=== PATIENT | female | born 1935 | race Caucasian/White ===

== ENCOUNTER 2017-03-09 15:26 | Inpatient (IN) | payer MEDICARE, BC ==
[~2017-03-09] VITALS: Ht 154.9 cm; Wt 61.3 kg
--- NOTE | 2017-03-09 15:26 | NUR ---
[facility] ASSISTED LIVING FOR NEAR SYNCOPE, -FALL OR TRAUMA HYPOTENSIVE CLAY DRY PRESS OPERATOR, FLUID CHALLENGE ABOUT 250ML GIVEN IN THE FIELD
[2017-03-09] MEDS ORDERED: IV NS 0.9% 1,000 ML BAG IV ONE (16:00)
[2017-03-09 16:03] LABS: BASOPHILS # (AUTO) 0.1 /CMM (0.0-0.2); BASOPHILS % (AUTO) 0.5 % (0.0-2.0); EOSINOPHILS # (AUTO) 0.1 /CMM (0.0-0.7); EOSINOPHILS % (AUTO) 0.7 % (0.0-6.0); HEMATOCRIT 43 % (33-45); HEMOGLOBIN 14.7 g/dL (11.5-14.8); LYMPHOCYTES # (AUTO) 1.1 /CMM (0.8-4.8); LYMPHOCYTES % (AUTO) 8.8 % (20.0-44.0); MEAN CORPUSCULAR HEMOGLOBIN 33 PG (26.0-33.0); MEAN CORPUSCULAR HGB CONC 34 g/dl (31.0-36.0); MEAN CORPUSCULAR VOLUME 96 fL (82-100); MONOCYTES # (AUTO) 0.4 /CMM (0.1-1.30); NEUTROPHILS # (AUTO) 11.3 /CMM (1.8-8.9); PLATELET COUNT (AUTO) 201 /CMM (150-450); RDW COEFFICIENT OF VARIATION 12.2 (11.5-15.0); RED BLOOD CELL COUNT(AUTO) 4.47 MIL/uL (4.0-5.2)
[2017-03-09 16:13] LABS: CALCIUM, SERUM 8.9 mg/dL (8.5-10.1); CARBON DIOXIDE 22 mmol/L (21-32); CHLORIDE 88 mmol/L (98-107); CREATININE 1.3 mg/dL (0.6-1.3); GLUCOSE 134 mg/dL (74-106); POTASSIUM 3.8 mmol/L (3.5-5.1); SODIUM SERUM 123 mmol/L (136-145); UREA NITROGEN, BLOOD 19 mg/dL (7-18)
[2017-03-09 16:16] LABS: INR 1.17 (0.87-1.13); PROTHROMBIN TIME 12.2 SECS (9.5-12.7)
[2017-03-09 16:19] LABS: ALANINE AMINOTRANSFERASE 22 U/L (12-78); ALBUMIN 3.1 g/dL (3.4-5.0); ALKALINE PHOSPHATASE 181 U/L (46-116); ASPARTATE AMINOTRANSFERASE 35 U/L (15-37); BILIRUBIN,DIRECT 0.3 mg/dL (0.0-0.2); BILIRUBIN,TOTAL 0.8 mg/dL (0.2-1.0)
[2017-03-09 16:21] LABS: TROPONIN I < 0.017 ng/mL (0.00-0.056)
[2017-03-09] MEDS ORDERED: OSELTAMIVIR PHOSPHATE 75 MG CAPSULE PO ONE (16:30)
[2017-03-09] MEDS ORDERED: CEFTRIAXONE 1GM BAG (ER ONLY) 50 ML IV ONE (16:30)
[2017-03-09] MEDS ORDERED: AZITHROMYCIN 500 MG in IV D5W 250 ML IV ONE (16:30)
--- NOTE | 2017-03-09 16:54 | NUR ---
TELE [id number]
[2017-03-09] MEDS ORDERED: ONDANSETRON HCL/PF 4 MG/2 ML VIAL IVP ONE (17:00)
[2017-03-09] MEDS ORDERED: TRAM50TA2 PO (17:08)
[2017-03-09] MEDS ORDERED: OXYC-128 PO (17:08)
[2017-03-09] MEDS ORDERED: RIVA10TA PO (17:08)
[2017-03-09] MEDS ORDERED: BRIM5DRO5 EACHEYE (17:08)
[2017-03-09] MEDS ORDERED: BENA5TAB2 PO (17:08)
[2017-03-09] MEDS ORDERED: ACET-2605 PO (17:08)
[2017-03-09] MEDS ORDERED: FLUT1DIS5 IH (17:08)
[2017-03-09] MEDS ORDERED: ALBU8.5H8 INH (17:08)
[2017-03-09] MEDS ORDERED: FERR-58 PO (17:08)
[2017-03-09] MEDS ORDERED: B2/V1TAB PO (17:08)
[2017-03-09] MEDS ORDERED: CHOL10002 PO (17:08)
[2017-03-09] MEDS ORDERED: CLON0.1T PO (17:08)
[2017-03-09] MEDS ORDERED: TIOT18CA3 IH (17:08)
[2017-03-09] MEDS ORDERED: POLY119P2 PO (17:08)
[2017-03-09] MEDS ORDERED: PRED5TAB PO (17:08)
[2017-03-09] MEDS ORDERED: DOCU100C36 PO (17:08)
[2017-03-09] MEDS ORDERED: GUAI600T53 PO (17:08)
[2017-03-09] MEDS ORDERED: HYDR12.55 PO (17:08)
[2017-03-09] MEDS ORDERED: FAMO20TA8 PO (17:08)
[2017-03-09] MEDS ORDERED: AMLO2.5T PO (17:08)
[2017-03-09] MEDS ORDERED: PANT40TA4 PO (17:08)
[2017-03-09] MEDS ORDERED: ONDANSETRON HCL/PF 4 MG/2 ML VIAL ONE (17:16)
[2017-03-09] MEDS ORDERED: OSELTAMIVIR PHOSPHATE 75 MG CAPSULE ONE (17:16)
--- NOTE | 2017-03-09 18:31 | NUR ---
CALLED NURSING SUP. TO INFORM HER PT IS POSITIVE FOR INFLUENZA
--- NOTE | 2017-03-09 19:25 | NUR ---
GAVE REPORT TO NAMRATA FOR SCARLET
[2017-03-09] MEDS ORDERED: CEFTRIAXONE 1 G in IV D5W 50 ML IV SCH (20:00)
[2017-03-09] MEDS ORDERED: GUAIFENESIN LA 600 MG TABLET.SA PO PRN (20:00)
[2017-03-09] MEDS ORDERED: Z GUARD REMEDY 2 OZ OINT TP PRN (20:00)
[2017-03-09] MEDS ORDERED: MAGNESIUM HYDROXIDE 30 ML UDC PO PRN (20:00)
[2017-03-09] MEDS ORDERED: MAG HYDROX/AL HYDROX/SIMETH 30 ML UDC PO PRN (20:00)
[2017-03-09] MEDS ORDERED: oxyCODONE/APAP (5/325 MG) 1 UDTAB TABLET PO PRN (20:00)
[2017-03-09] MEDS ORDERED: ACETAMINOPHEN 325 MG TABLET PO PRN (20:00)
--- NOTE | 2017-03-09 20:38 | NUR ---
REPORT GIVEN TO [facility] NURSE
[2017-03-09 21:30] VITALS: BP 132/89
--- NOTE | 2017-03-09 22:00 | NUR ---
LEGAL EDITOR NOTE RECEIVED PATIENT AWAKE AND ALERT X3. NO DISTRESS NOTED. GENERALIZED WEAKNESS NOTED. UNABLE TO AMBULATE AT THIS TIME. PATIENT DENIES ANY PAIN. TWO SONS AT BEDSIDE. ORIENTED PATIENT AND FAMILY TO ROOM AND TO UNIT. SKIN CHECKED. PICTURES TAKEN OF WOUNDS AND PLACED IN CHART, WOUND CONSULT ORDERED. ALL BELONGINGS CHECKED AND ACCOUNTED FOR. IV SITE INTACT, WITH FLUIDS RUNNING ORDERED. BED LOCKED AND IN LOWEST POSITION. SIDE RAILS UP, CALL LIGHT WITHIN REACH. WILL CONTINUE TO MONITOR.
[2017-03-09] MEDS: IPRATROPIUM NEB FS 0.5 MG/2.5 ML AMPUL.NEB NEB SCH ×2 (22:10→23:30)
[2017-03-09 23:00] VITALS: BP 132/89
[2017-03-09] MEDS: ZITHROMAX 500 MG/250 ML D5W IV SCH ×2 (23:00)
[2017-03-10] VITALS: BP 131/72
[2017-03-10] MEDS: IV NS 0.9% 1,000 ML IV PRN ×2 (03:28→15:59)
[2017-03-10 04:00] VITALS: BP 128/67
[2017-03-10] MEDS: ONDANSETRON HCL/PF 4 MG/2 ML VIAL IVP PRN ×2 (04:50→11:17)
--- NOTE | 2017-03-10 06:40 | NUR ---
HYDROLOGIC ENGINEER NOTE PATIENT SLEEPING AT THIS TIME. KEPT CLEAN, DRY AND COMFORTABLE. WILL ENDORSE TO DAY SHIFT FOR SCARLET.
[2017-03-10 07:01] LABS: BASOPHILS # (AUTO) 0.1 /CMM (0.0-0.2); BASOPHILS % (AUTO) 0.3 % (0.0-2.0); HEMATOCRIT 44 % (33-45); HEMOGLOBIN 15.1 g/dL (11.5-14.8); LYMPHOCYTES # (AUTO) 1.7 /CMM (0.8-4.8); LYMPHOCYTES % (AUTO) 9.7 % (20.0-44.0); MEAN CORPUSCULAR HEMOGLOBIN 34 PG (26.0-33.0); MEAN CORPUSCULAR HGB CONC 34 g/dl (31.0-36.0); MEAN CORPUSCULAR VOLUME 98 fL (82-100); MONOCYTES # (AUTO) 1.1 /CMM (0.1-1.30); MONOCYTES % (AUTO) 6.3 % (2.0-12.0); NEUTROPHILS # (AUTO) 14.9 /CMM (1.8-8.9); NEUTROPHILS % (AUTO) 83.7 % (43.0-81.0); PLATELET COUNT (AUTO) 194 /CMM (150-450); RDW COEFFICIENT OF VARIATION 13.1 (11.5-15.0); RED BLOOD CELL COUNT(AUTO) 4.49 MIL/uL (4.0-5.2); WHITE BLOOD COUNT (AUTO) 17.8 K/uL (4.3-11.0)
[2017-03-10 07:02] LABS: CALCIUM, SERUM 8.1 mg/dL (8.5-10.1); CARBON DIOXIDE 22 mmol/L (21-32); CHLORIDE 92 mmol/L (98-107); CREATININE 1.1 mg/dL (0.6-1.3); GLUCOSE 102 mg/dL (74-106); MAGNESIUM 1.7 mg/dL (1.8-2.4); PHOSPHORUS 3.1 mg/dL (2.5-4.9); POTASSIUM 3.6 mmol/L (3.5-5.1); SODIUM SERUM 128 mmol/L (136-145); UREA NITROGEN, BLOOD 17 mg/dL (7-18)
[2017-03-10 08:00] VITALS: BP 117/78
--- NOTE | 2017-03-10 08:00 | NUR ---
RN NOTES PATIENT IN BED RESTING NO SOB OR ACUTE DISTRESS NOTED. ALERT, ORIENTED X3, PERIPHERAL IV INTACT PATENT. BED IN LOW LOCKED POSITION CALL LIGHT WITHIN REACH. WILL CONTINUE TO MONITOR.
[2017-03-10] MEDS: IPRATROPIUM NEB FS 0.5 MG/2.5 ML AMPUL.NEB NEB SCH ×3 (08:59→23:32)
[2017-03-10] MEDS ORDERED: HYDROCHLOROTHIAZIDE 25 MG TABLET PO SCH (09:00)
[2017-03-10] MEDS ORDERED: OSELTAMIVIR PHOSPHATE 75 MG CAPSULE PO SCH (09:00)
[2017-03-10] MEDS: CHOLECALCIFEROL 1,000 UNIT TABLET (VIT D3) PO SCH (09:44)
[2017-03-10] MEDS: PANTOPRAZOLE 40 MG TABLET.DR PO SCH (09:44)
[2017-03-10] MEDS: FERROUS SULFATE (325 MG) 325 MG/TAB TABLET PO SCH ×2 (09:45→18:09)
[2017-03-10] MEDS: CLONIDINE HCL 0.1 MG TABLET PO SCH (09:45)
[2017-03-10] MEDS: DOCUSATE SODIUM 100 MG CAPSULE PO SCH (09:45)
[2017-03-10] MEDS: AMLODIPINE BESYLATE 2.5 MG TABLET PO SCH (09:47)
[2017-03-10] MEDS: predniSONE 5 MG TABLET PO SCH (09:47)
[2017-03-10] MEDS: FAMOTIDINE (20 MG) 20 MG TABLET PO SCH ×2 (09:47→18:09)
[2017-03-10] MEDS: POLYETHYLENE GLYCOL 3350 17 GM POWD.PACK PO SCH (09:48)
[2017-03-10] MEDS: MULTIVITAMIN/LUTEIN/MINERALS 1 TAB PO SCH ×2 (09:51→18:09)
[2017-03-10] MEDS: FLUTICASONE/VILANTEROL 1 EACH BLST.W.DEV IH SCH (09:59)
[2017-03-10] MEDS: BRIMONIDINE TARTRATE OPHT SOLN 5 ML BOTTLE EACHEYE SCH ×3 (10:00→18:11)
--- NOTE | 2017-03-10 11:00 | NUR ---
MICA LAYER NOTES PATIENT SEEN AND EVALUATED BY DR. WARD ORDERS NOTED AND CARRIED OUT.
[2017-03-10] MEDS: Magnesium 1GM/D5W 100ML PREMIX 100 ML IV SCH ×2 (12:23→14:04)
--- NOTE | 2017-03-10 13:52 | NUR ---
WOUND CARE CONSULT: PT PRESENTS WITH HUGE RAISED BRUISE AREA TO LEFT CHEST WALL. DEFER TO MD. RECOMMENDATIONS MADE FOR SKIN PROTECTION AND DISCUSSED WITH NURSING STAFF. PT IS INCONTINENT. ALL SKIN PROTECTION MEASURES IN PLACE. WILL SEE PRN. VIVAR IN AGREEMENT WITH PLAN OF CARE. Addendum: 03/10/17 at 1354 by EVARISTO CAEVEDO WNDNU Amended: Links added.
[2017-03-10] MEDS: CEFTRIAXONE 1 G in IV D5W 50 ML IV SCH (15:59)
[2017-03-10 16:00] VITALS: BP 124/66
[2017-03-10] MEDS: RIVAROXABAN 10 MG TABLET PO SCH (18:10)
--- NOTE | 2017-03-10 18:37 | NUR ---
RN NOTES PATIENT DAUGHTER STATES SHE HAS ONLY ALLERGIES TO IBUPROFEN . PHARMACY NOTIFIED.
--- NOTE | 2017-03-10 19:30 | NUR ---
MS RN NOTES PATIENT IN BED RESTING NO SOB OR ACUTE DISTRESS NOTED. ALL DUE MEDICATIONS ADMINISTERED. ALL NEEDS MET . PERIPHERAL IV INTACT PATENT. ENDORSED CARE TO PM SHIFT.
[2017-03-10 20:00] VITALS: BP 114/68
[2017-03-10 22:00] VITALS: BP 114/68
[2017-03-10] MEDS: ZITHROMAX 500 MG/250 ML D5W IV SCH ×2 (23:53)
[2017-03-11] MEDS: ONDANSETRON HCL/PF 4 MG/2 ML VIAL IVP PRN ×3 (01:57→16:36)
--- NOTE | 2017-03-11 06:34 | NUR ---
MS RN NOTE PATIENT SLEEPING AT THIS TIME. KEPT CLEAN, DRY AND COMFORTABLE. WILL ENDORSE TO DAY SHIFT FOR SCARLET.
[2017-03-11 07:48] LABS: BASOPHILS % (AUTO) 0.1 % (0.0-2.0); EOSINOPHILS % (AUTO) 0.2 % (0.0-6.0); HEMATOCRIT 37 % (33-45); HEMOGLOBIN 13.1 g/dL (11.5-14.8); LYMPHOCYTES # (AUTO) 1.6 /CMM (0.8-4.8); LYMPHOCYTES % (AUTO) 8.5 % (20.0-44.0); MEAN CORPUSCULAR HEMOGLOBIN 33 PG (26.0-33.0); MEAN CORPUSCULAR HGB CONC 35 g/dl (31.0-36.0); MEAN CORPUSCULAR VOLUME 95 fL (82-100); MONOCYTES # (AUTO) 1.3 /CMM (0.1-1.30); MONOCYTES % (AUTO) 7.2 % (2.0-12.0); NEUTROPHILS # (AUTO) 15.3 /CMM (1.8-8.9); PLATELET COUNT (AUTO) 219 /CMM (150-450); RDW COEFFICIENT OF VARIATION 12.2 (11.5-15.0); RED BLOOD CELL COUNT(AUTO) 3.93 MIL/uL (4.0-5.2); WHITE BLOOD COUNT (AUTO) 18.2 K/uL (4.3-11.0)
--- NOTE | 2017-03-11 07:56 | NUR ---
MS RN OPENING NOTES. PT WITH DROPLET PRECS R/T: INFLUENZA. RECEIVED PT A&0X3 RESTING IN BED. PT TOLERATING ROOM AIR WITHOUT SOB OR RESP DISTRESS. PT DENIES PAIN A THIS TIME. PT WITH IVC AT R HAND INTACT AND OPERATIONAL. BED IN LOWEST LOCKED POSITION WITH WITH HANDRAILSX2 AND CALL LEE WITHIN REACH. PT BRIEFED ON TODAY'S POC AND IS WITHOUT CONCERN OR COMPLAINT THIS TIME.
[2017-03-11 08:00] VITALS: BP 111/68
[2017-03-11] MEDS: CHOLECALCIFEROL 1,000 UNIT TABLET (VIT D3) PO SCH (08:27)
[2017-03-11] MEDS: AMLODIPINE BESYLATE 2.5 MG TABLET PO SCH (08:28)
[2017-03-11] MEDS: DOCUSATE SODIUM 100 MG CAPSULE PO SCH (08:28)
[2017-03-11] MEDS: FERROUS SULFATE (325 MG) 325 MG/TAB TABLET PO SCH ×2 (08:29→18:27)
[2017-03-11] MEDS: CLONIDINE HCL 0.1 MG TABLET PO SCH (08:29)
[2017-03-11] MEDS: FAMOTIDINE (20 MG) 20 MG TABLET PO SCH ×2 (08:30→18:27)
[2017-03-11] MEDS: PANTOPRAZOLE 40 MG TABLET.DR PO SCH (08:30)
[2017-03-11] MEDS: predniSONE 5 MG TABLET PO SCH (08:30)
[2017-03-11] MEDS: POLYETHYLENE GLYCOL 3350 17 GM POWD.PACK PO SCH (08:31)
[2017-03-11 09:00] LABS: CARBON DIOXIDE 24 mmol/L (21-32); CHLORIDE 91 mmol/L (98-107); CREATININE 0.8 mg/dL (0.6-1.3); GLUCOSE 94 mg/dL (74-106); MAGNESIUM 1.9 mg/dL (1.8-2.4); PHOSPHORUS 1.9 mg/dL (2.5-4.9); POTASSIUM 3.2 mmol/L (3.5-5.1); SODIUM SERUM 126 mmol/L (136-145); UREA NITROGEN, BLOOD 15 mg/dL (7-18)
[2017-03-11] MEDS: BRIMONIDINE TARTRATE OPHT SOLN 5 ML BOTTLE EACHEYE SCH ×3 (09:00→18:28)
[2017-03-11] MEDS: FLUTICASONE/VILANTEROL 1 EACH BLST.W.DEV IH SCH (09:00)
[2017-03-11] MEDS: MULTIVITAMIN/LUTEIN/MINERALS 1 TAB PO SCH ×2 (09:00→18:27)
--- NOTE | 2017-03-11 09:00 | NUR ---
RN NOTES. PHARMACY CONTACTED REGARDING MISSING CASETTE MEDICATIONS. PHARMACY TO PROVIDE.
[2017-03-11] MEDS: IPRATROPIUM NEB FS 0.5 MG/2.5 ML AMPUL.NEB NEB SCH ×2 (09:20→14:30)
[2017-03-11] MEDS ORDERED: MENTHOL/CETYLPYRD (CEPACOL) 1 LOZ LOZENGE PO PRN (11:30)
[2017-03-11 12:08] LABS: THYROID STIMULATING HORMONE 1.364 uIU/mL (0.358-3.74); URIC ACID 7.1 mg/dL (2.6-7.2)
[2017-03-11 16:00] VITALS: BP 119/63
[2017-03-11] MEDS: CEFTRIAXONE 1 G in IV D5W 50 ML IV SCH (16:28)
[2017-03-11] MEDS: RIVAROXABAN 10 MG TABLET PO SCH (18:32)
[2017-03-11] MEDS ORDERED: NEUTRA PHOS 1 POWD.PACKET PO ONE (19:00)
[2017-03-11] MEDS ORDERED: FEE PK DOSING 1 MIN EA MC ONE (19:26)
--- NOTE | 2017-03-11 19:30 | NUR ---
RN OPENING NOTES PATIENT IS RESTING IN BED, ALERT AND ORIENTEDX3. VS STABLE. NO C/O PAIN AT THIS TIME. RHONCHI HEARD ON AUSCULTATION. ON NC 3L. PT WITH INTERMITTENT NAUSEA TREATED WITH PRN ANTIEMETICS. IV ACCESS AT R HAND G#20 SL PATENT AND INTACT. BED IN LOW AND LOCKED POSITION, SIDE RAILSX3. CALL LIGHT WITHIN EASY REACH. WILL CONTINUE TO MONITOR AND ASSESS DURING THE SHIFT.
--- NOTE | 2017-03-11 19:38 | NUR ---
RN CLOSING NOTES. PT A&0X3, PREDOMINANTLY RESTING WITH FAMILY AT BEDSIDE. PT WITH O2 VIA NC 3LPM, SOB WITH MINOR EXERTION. LUNGS REMAIN CONGESTED WITH RHONCHI. PT REPORTING NO PAIN. PT WITH INTERMITTENT NAUSEA TREATED WITH PRN ANTIEMETICS. PT WITH IVC AT R HAND G#20 INTACT AND SL. BED IN LOWEST LOCKED POSITION WITH HANDRAILSX3 AND CALL LEE WITHIN REACH. ALL DAY SHIFT DUTIES ATTENDED TO. PT WITHOUT CONCERN OR COMPLAINT. WILL ENDORSE TO NIGHT NURSE.
[2017-03-11 20:00] VITALS: BP 104/63
[2017-03-11 20:25] VITALS: BP 104/63
[2017-03-11] MEDS: VANCOMYCIN 1 GM in IV D5W 250 ML IV SCH (21:06)
[2017-03-11] MEDS: ZOLPIDEM TARTRATE 5 MG TABLET PO PRN (21:35)
[2017-03-12] VITALS (18 sets, daily range): BP systolic 90–139; BP diastolic 43–81
[2017-03-12] MEDS: IPRATROPIUM NEB FS 0.5 MG/2.5 ML AMPUL.NEB NEB SCH ×4 (00:12→23:38)
[2017-03-12] MEDS: ONDANSETRON HCL/PF 4 MG/2 ML VIAL IVP PRN ×2 (06:44→14:47)
--- NOTE | 2017-03-12 06:53 | NUR ---
RN CLOSING NOTES PATIENT IS SLEEPING IN BED, EASY TO AROUSE, ALERT AND ORIENTED X3. VS STABLE. RHONCHI PRESENT UPON ON AUSCULTATION. ON NC 3L. PT WITH INTERMITTENT NAUSEA TREATED WITH PRN ANTIEMETICS PRN. IV ACCESS AT R HAND G#20 SL PATENT AND INTACT. ALL NEEDS ARE MET AND MEDICATIONS GIVEN PER MD ORDER. BED IN LOW AND LOCKED POSITION, SIDE RAILSX3. CALL LIGHT WITHIN EASY REACH. WILL ENDORSE TO RN DAY SHIFT FOR SCARLET.
[2017-03-12 07:27] LABS: BASOPHILS % (AUTO) 0.3 % (0.0-2.0); EOSINOPHILS % (AUTO) 0.2 % (0.0-6.0); HEMATOCRIT 34 % (33-45); HEMOGLOBIN 11.6 g/dL (11.5-14.8); LYMPHOCYTES # (AUTO) 0.9 /CMM (0.8-4.8); LYMPHOCYTES % (AUTO) 9.7 % (20.0-44.0); MEAN CORPUSCULAR HEMOGLOBIN 34 PG (26.0-33.0); MEAN CORPUSCULAR HGB CONC 35 g/dl (31.0-36.0); MEAN CORPUSCULAR VOLUME 97 fL (82-100); MONOCYTES # (AUTO) 0.5 /CMM (0.1-1.30); MONOCYTES % (AUTO) 5.6 % (2.0-12.0); NEUTROPHILS # (AUTO) 8.1 /CMM (1.8-8.9); NEUTROPHILS % (AUTO) 84.2 % (43.0-81.0); PLATELET COUNT (AUTO) 207 /CMM (150-450); RDW COEFFICIENT OF VARIATION 13.3 (11.5-15.0); RED BLOOD CELL COUNT(AUTO) 3.44 MIL/uL (4.0-5.2); WHITE BLOOD COUNT (AUTO) 9.6 K/uL (4.3-11.0)
--- NOTE | 2017-03-12 07:30 | NUR ---
m/s channel marketing manager: notes received pt in bed awake, appears weak. noted with hr on the 140's. c/o sob. pt on o2 at 2l/min via n/c and satting at 96%. hob elevated. noted iv to right hand swelling with redness. iv removed with tip intact. inserted new iv to right hand/wrist#22. will continue to monitor.
--- NOTE | 2017-03-12 08:00 | NUR ---
m/s accounting manager controller: notes pt remains [id number]. placed pt on tele. dr. kiran here and made aware with stat order of ekg. also showed [address] kiran. cn made aware.
[2017-03-12 08:17] LABS: CALCIUM, SERUM 8.3 mg/dL (8.5-10.1); CARBON DIOXIDE 25 mmol/L (21-32); CHLORIDE 92 mmol/L (98-107); CREATININE 0.7 mg/dL (0.6-1.3); GLUCOSE 92 mg/dL (74-106); MAGNESIUM 1.6 mg/dL (1.8-2.4); PHOSPHORUS 1.9 mg/dL (2.5-4.9); POTASSIUM 3.3 mmol/L (3.5-5.1); SODIUM SERUM 127 mmol/L (136-145); UREA NITROGEN, BLOOD 11 mg/dL (7-18)
--- NOTE | 2017-03-12 08:20 | NUR ---
m/s materials assistant: notes ekg resulted=svt= [address] kiran with verbal order to transfer pt to [facility]. cn made aware and called schedule supervisor for a bed. pt made aware.
--- NOTE | 2017-03-12 08:25 | NUR ---
m/s promotional marketing analyst: notes dr. watkins here and made aware re: transfer to [facility] status. still awaiting for bed.
--- NOTE | 2017-03-12 08:43 | NUR ---
m/s foundry helper: notes dr. kiran at bedside and assessed pt with verbal order to send pt to [facility] instead. cn aware. pt made aware.
--- NOTE | 2017-03-12 08:46 | NUR ---
m/s diabetes nurse: notes pt may need a midline. dr. watkins here and received order for midline insertion. order carried out and acknowledged. cn aware and will call nursing pond supervisor.
[2017-03-12] MEDS ORDERED: AMIODARONE 900 MG in IV D5W 500 ML IV PRN (09:00)
[2017-03-12] MEDS: FERROUS SULFATE (325 MG) 325 MG/TAB TABLET PO SCH ×2 (09:00→16:18)
[2017-03-12] MEDS: PANTOPRAZOLE 40 MG TABLET.DR PO SCH (09:00)
[2017-03-12] MEDS: BOOST PLUS FOOD-CHOCLATE 237 ML BOX PO SCH ×3 (09:00→16:18)
[2017-03-12] MEDS: DOCUSATE SODIUM 100 MG CAPSULE PO SCH (09:00)
[2017-03-12] MEDS ORDERED: AMIODARONE 150 MG in IV D5W 100 ML IV ONE (09:00)
[2017-03-12] MEDS: POLYETHYLENE GLYCOL 3350 17 GM POWD.PACK PO SCH (09:00)
[2017-03-12] MEDS: predniSONE 5 MG TABLET PO SCH (09:00)
[2017-03-12] MEDS: AMLODIPINE BESYLATE 2.5 MG TABLET PO SCH (09:00)
[2017-03-12] MEDS: CLONIDINE HCL 0.1 MG TABLET PO SCH (09:00)
[2017-03-12] MEDS: CHOLECALCIFEROL 1,000 UNIT TABLET (VIT D3) PO SCH (09:00)
[2017-03-12] MEDS: MULTIVITAMIN/LUTEIN/MINERALS 1 TAB PO SCH ×2 (09:00→16:19)
[2017-03-12] MEDS: FAMOTIDINE (20 MG) 20 MG TABLET PO SCH ×2 (09:00→16:18)
--- NOTE | 2017-03-12 09:10 | NUR ---
m/s recruiting administrator: notes weston (daughter) notified and made aware re: transfer to higher level care to [facility], spoke to her over the phone and she is on her way here as stated.
--- NOTE | 2017-03-12 09:20 | NUR ---
RN NOTES RECEIVED PT FROM [facility] VIA BED. PT LETHARGIC. ON O2 AT 2LPM VIA NC. PLACED COMFORTABLY IN THE ROOM. PT CONNECTED TO MONITOR, HR ON 140-150S. STARTED IV LINE ON RIGHT WRIST #20. AWAITING FOR MIDLINE INSERTION. BODY ASSESSMENT DONE. NO NEW SKIN ISSUE NOTED. INSERTED FC. NO HEMATURIA NOTED. BLE ELEVATED. FOR AMIO DRIP. DR. LOGAN IN THE UNIT AWARE OF TRANSFER. ORDERED ADENOSINE 6MG AND 12MG IVP NOW. PT HR REMAINS ON 140S. ABG RESULT RELAYED TO DR. LOGAN. WILL CLOSELY MONITOR.
--- NOTE | 2017-03-12 09:20 | NUR ---
m/s assistant to the vice president: notes transferred pt to [facility] room 261 with all valuables/belongings via bed with monitor and oxygen. report given to prince gonzalez) for continuity of care.
[2017-03-12] MEDS ORDERED: ADENOSINE 6 MG/2 ML VIAL IVP STA ×2 (09:28)
--- NOTE | 2017-03-12 09:45 | NUR ---
RN NOTES PT GIVEN ADENOSINE 6MG AND 12MG IVP. HR WENT DOWN TO 80S AFTER MED ADMINISTRATION BUT WENT UP AGAIN TO 130-140S. PT ON A.FIB. AWAITING FOR AMIO DRIP. DR. LOGAN IN THE UNIT AWARE. PT A/OX1, DROWSY. NO RESPIRATORY DISTRESS NOTED. NO SOB NOTED. NO SIGNS OF PAIN NOTED. DAUGHTER AT BEDSIDE. WILL CLOSELY MONITOR.
--- NOTE | 2017-03-12 10:00 | NUR ---
RN NOTES SEEN AND EXAMINED BY DR. KIM GARRISON. AWARE OF CURRENT LAB VALUES ON CXR RESULT. PT INSERTED FC. NO HEMATURIA NOTED. WILL MONITOR.
[2017-03-12] MEDS: FLUTICASONE/VILANTEROL 1 EACH BLST.W.DEV IH SCH (10:06)
[2017-03-12] MEDS: BRIMONIDINE TARTRATE OPHT SOLN 5 ML BOTTLE EACHEYE SCH ×3 (10:06→16:20)
[2017-03-12] MEDS ORDERED: AMIODARONE 900 MG in IV D5W 482 ML IV PRN (11:00)
[2017-03-12] MEDS: Magnesium 1GM/D5W 100ML PREMIX 1 G in PREMIX 1 EA IV SCH ×2 (11:23→12:31)
[2017-03-12] MEDS: Potassium Phosphate meq 11 MEQ in IV D5W 100 ML IV SCH ×2 (12:43→15:39)
[2017-03-12] MEDS: TRAMADOL HCL 50 MG TABLET PO PRN (12:43)
[2017-03-12] MEDS: VANCOMYCIN 1 GM in IV D5W 250 ML IV SCH (15:32)
--- NOTE | 2017-03-12 16:00 | NUR ---
RN NOTES SEEN AND EXAMINED BY DR. WARD. AWARE OF CURRENT LAB VALUES AND CXR RESULT. POTASSIUM MG AND PHOSPHORUS REPLACED. PT ON AMIO DRIP 1MG/HR. PT ETHAN ON 80S. NO SIGNS OF CARDIAC DISTRESS NOTED. ORDERED LABS IN AM. WILL MONITOR. Addendum: 03/12/17 at 1700 by BETO MORA RN CORRECTION... AMIO DRIP 1MG/MIN NOT 1MG/HR
[2017-03-12 16:10] LABS: THYROID STIMULATING HORMONE 0.912 uIU/mL (0.358-3.74)
[2017-03-12] MEDS: RIVAROXABAN 10 MG TABLET PO SCH (16:19)
[2017-03-12] MEDS: oxyCODONE/APAP (5/325 MG) 1 UDTAB TABLET PO PRN (16:26)
--- NOTE | 2017-03-12 18:54 | NUR ---
RN CLOSING NOTES PT REMAINS AWAKE, A/OX1. NO RESPIRATORY DISTRESS NOTED. PAIN WELL MANAGED. KEPT COMFORTABLE. MIDLINE IN PLACE. ON AMIO DRIP AT 0.5MG/MIN. VS WNL. FC IN PLACE. ADEQUATE OUTPUT NOTED. KEPT CLEAN AND DRY. REPOSITIONED Q2. PT COMFORTABLE. WILL ENDORSE FOR CONTINUITY OF CARE.
--- NOTE | 2017-03-12 19:30 | NUR ---
BINGO CALLER: PT RECEIVED ALERT AND ORIENTED X 3. ON 2L 02 VIA NC WT NO CUTE DISTRESS. NO C/O PAIN OR EVIDENCE OF DISCOMFORT. CONTROLLED A. FIB ON SPORTS PHYSICAL THERAPIST WT HR IN THE 70s. CONTINUE ON AMIODARONE DRIP 0.5MG/MIN WT NO S/S OF INFILTRATION ON PARI MIDLINE. AFEBRILE. F/C PATENT AND INTACT DRAINING YELLOW URINE BY GRAVITY. HOB AT 35 DEGREES. SAFETY PRECAUTION NOTED. CALL LIGHT KEPT WITHIN REACH. WILL CONTINUE TO MONITOR.
[2017-03-12] MEDS: ZOLPIDEM TARTRATE 5 MG TABLET PO PRN (21:10)
[2017-03-13] VITALS (19 sets, daily range): BP systolic 99–136; BP diastolic 51–72
--- NOTE | 2017-03-13 00:30 | NUR ---
CHIEF OPERATING ENGINEER: NO SCARLET. STILL ON AMIO. DRIP AT 05.MG/MIN WT CONTROLLED A. FIB, HR IN THE 70s. OCCASIONAL PVCs NOTED.
[2017-03-13] MEDS: oxyCODONE/APAP (5/325 MG) 1 UDTAB TABLET PO PRN ×2 (04:47→13:08)
--- NOTE | 2017-03-13 05:50 | NUR ---
SHINGLES ROOFER HELPER: REASSESSED PAIN AFTER GIVEN PERCOCET WT GOOD EFFECT (0/10). REMAINED A/O X 3, CONTROLLED A. FIB WT OCCASIONAL PVCs ON FABRIC SOURCER. GOOD ORAL CARE RENDERED.
[2017-03-13 06:01] LABS: BASOPHILS % (AUTO) 0.1 % (0.0-2.0); EOSINOPHILS # (AUTO) 0.1 /CMM (0.0-0.7); EOSINOPHILS % (AUTO) 1.1 % (0.0-6.0); HEMATOCRIT 27 % (33-45); HEMOGLOBIN 9.4 g/dL (11.5-14.8); LYMPHOCYTES % (AUTO) 12.5 % (20.0-44.0); MEAN CORPUSCULAR HEMOGLOBIN 34 PG (26.0-33.0); MEAN CORPUSCULAR HGB CONC 35 g/dl (31.0-36.0); MEAN CORPUSCULAR VOLUME 97 fL (82-100); MONOCYTES # (AUTO) 0.7 /CMM (0.1-1.30); NEUTROPHILS # (AUTO) 5.9 /CMM (1.8-8.9); NEUTROPHILS % (AUTO) 77.3 % (43.0-81.0); PLATELET COUNT (AUTO) 242 /CMM (150-450); RDW COEFFICIENT OF VARIATION 12.8 (11.5-15.0); RED BLOOD CELL COUNT(AUTO) 2.81 MIL/uL (4.0-5.2); WHITE BLOOD COUNT (AUTO) 7.6 K/uL (4.3-11.0)
[2017-03-13 06:11] LABS: CALCIUM, SERUM 7.9 mg/dL (8.5-10.1); CARBON DIOXIDE 30 mmol/L (21-32); CHLORIDE 92 mmol/L (98-107); CREATININE 0.5 mg/dL (0.6-1.3); GLUCOSE 85 mg/dL (74-106); MAGNESIUM 1.9 mg/dL (1.8-2.4); PHOSPHORUS 2.2 mg/dL (2.5-4.9); POTASSIUM 2.9 mmol/L (3.5-5.1); SODIUM SERUM 129 mmol/L (136-145); UREA NITROGEN, BLOOD 6 mg/dL (7-18)
--- NOTE | 2017-03-13 06:30 | NUR ---
FRONT LOADER RESIDENTIAL DRIVER: REMAINED STABLE THROUGHOUT THE SHIFT. A/O X 3. NO ACUTE DISTRESS NOTED. VS WITHIN HER BASELINE. WILL ENDORSE TO DAY SHIFT FOR CONTINUITY OF CARE.
--- NOTE | 2017-03-13 07:30 | NUR ---
CONSTRUCTION MANAGER INITIAL NOTES RECEIVED PATIENT SLEEPING IN BED, EASY TO AROUSE, NO SIGNS OF DISTRESS ON 2L NC SATURATING WELL, ON TELE MONITORING SR 75 HR WITH 1ST DEGREE BLOCK, IV ACCESS PARI MIDLINE INFUSING AMIODORONE DRIP 0.5MG/MIN TO BE DC AT 0845, FC TOP GRAVITY DRAINING CLEAR YELLOW URINE, BED IN LOW AND LOCKED POSITION CALL LIGHT WITHIN REACH, WILL CONTINUE TO MONITOR.
[2017-03-13] MEDS: IPRATROPIUM NEB FS 0.5 MG/2.5 ML AMPUL.NEB NEB SCH ×3 (07:35→23:30)
[2017-03-13] MEDS: POLYETHYLENE GLYCOL 3350 17 GM POWD.PACK PO SCH (08:28)
[2017-03-13] MEDS: DOCUSATE SODIUM 100 MG CAPSULE PO SCH (08:34)
[2017-03-13] MEDS: POTASSIUM CHLORIDE 20 MEQ TAB.PRT.SR PO SCH ×5 (08:34→13:07)
[2017-03-13] MEDS: predniSONE 5 MG TABLET PO SCH (08:34)
[2017-03-13] MEDS: NEUTRA PHOS 1 POWD.PACKET PO SCH ×2 (08:34→16:12)
[2017-03-13] MEDS: FERROUS SULFATE (325 MG) 325 MG/TAB TABLET PO SCH ×2 (08:34→16:12)
[2017-03-13] MEDS: FAMOTIDINE (20 MG) 20 MG TABLET PO SCH ×2 (08:34→16:12)
[2017-03-13] MEDS: PANTOPRAZOLE 40 MG TABLET.DR PO SCH (08:35)
[2017-03-13] MEDS: AMIODARONE HCL 200 MG TABLET PO SCH ×3 (08:36→16:15)
[2017-03-13] MEDS: AMLODIPINE BESYLATE 2.5 MG TABLET PO SCH (08:36)
[2017-03-13] MEDS: BOOST PLUS FOOD-CHOCLATE 237 ML BOX PO SCH ×3 (08:37→16:14)
[2017-03-13] MEDS: BRIMONIDINE TARTRATE OPHT SOLN 5 ML BOTTLE EACHEYE SCH ×3 (08:38→16:14)
[2017-03-13] MEDS: FLUTICASONE/VILANTEROL 1 EACH BLST.W.DEV IH SCH (08:38)
[2017-03-13] MEDS: MULTIVITAMIN/LUTEIN/MINERALS 1 TAB PO SCH ×2 (09:30→16:14)
[2017-03-13] MEDS: CLONIDINE HCL 0.1 MG TABLET PO SCH (09:30)
[2017-03-13] MEDS: CHOLECALCIFEROL 1,000 UNIT TABLET (VIT D3) PO SCH (09:30)
[2017-03-13] MEDS: VANCOMYCIN 1 GM in IV D5W 250 ML IV SCH (09:31)
[2017-03-13] MEDS ORDERED: POTASSIUM PHOSPHATE MM 15 MMOL in IV D5W 250 ML IV SCH (10:00)
[2017-03-13] MEDS ORDERED: POTASSIUM CL. PREMIX PERIPHER. 50 ML IV SCH ×2 (10:00→10:30)
[2017-03-13 10:22] LABS: IRON, SERUM 45 ug/dl (50-175); TOTAL IRON BINDING CAPACITY 133 ug/dl (250-450)
[2017-03-13] MEDS ORDERED: POTASSIUM PHOSPHATE MM 7.5 MMOL in IV D5W 100 ML IV SCH (10:30)
[2017-03-13] MEDS: RIVAROXABAN 10 MG TABLET PO SCH (16:13)
--- NOTE | 2017-03-13 18:40 | NUR ---
MALE IMPERSONATOR NOTES PATIENT TRANSFERRED TO ROOM 105 FOR MONITORING, NO SIGNS OF DISTRESS, ALL NEEDS ATTENDED TO, WILL ENDORSE TO INSPECTION CLERK.
[2017-03-13] MEDS: VANCOMYCIN 0.75 GM in IV D5W 250 ML IV SCH (20:42)
[2017-03-13] MEDS: ZOLPIDEM TARTRATE 5 MG TABLET PO PRN (21:46)
--- NOTE | 2017-03-13 23:00 | NUR ---
RN NOTE; RECEIVED PT FROM [facility] IN STABLE CONDITION, RESTING IN BED AWAKE AND ALERT. BREATHING EVENLY. NO SOB. NAD. SKIN WARM AND DRY. SR ON TELE MONITOR,F/C IN PLACE DRAINING CLEAR YELLOW URINE. NEEDS ATTENDED . CALL LIGHT WITHIN REACH. WILL CONT TO MONITOR .
[2017-03-14] VITALS: BP 115/65
[2017-03-14 04:05] VITALS: BP 114/57
--- NOTE | 2017-03-14 06:31 | NUR ---
RN NOTE; PT IN BED SLEEPING AROUSES EASILY. BREATHING EVENLY. NO SOB. NO ACUTE EVENT DURING THE NIGHT. REMAINED SR ON TELE MONITOR, SKIN WARM AND DRY, F/C IN [place]CE DRAINING CLEAR YELLOW URINE. PT WAS CLEANED AND DRIED. REPOSITIONED ROUTINELY. BED LOW LOCKED. CALL LIGHT WITHIN REACH. WILL CONT TO MONITOR AND WILL ENDORSE TO AM SHIFT FOR SCARLET.
--- NOTE | 2017-03-14 07:26 | NUR ---
telephone clerk INITIAL NOTES RECEIVED PATIENT in bed . ALERT, ORIENTED XE3 ON 2L NC , ON TELE MONITORING SR 85 HR WITH PVC , IV ACCESS PARI MIDLINE INFUSING FC TOP GRAVITY DRAINING CLEAR YELLOW URINE, BED IN LOW AND LOCKED POSITION CALL LIGHT WITHIN REACH, WILL CONTINUE TO MONITOR. , PLAN OF CARE DISCUSSED WITH PATIENT , WILL CONT TO MONITOR CLOSELY
[2017-03-14] MEDS: IPRATROPIUM NEB FS 0.5 MG/2.5 ML AMPUL.NEB NEB SCH ×3 (07:28→23:03)
[2017-03-14 08:00] VITALS: BP 144/57
[2017-03-14 08:05] LABS: BASOPHILS % (AUTO) 0.3 % (0.0-2.0); EOSINOPHILS # (AUTO) 0.2 /CMM (0.0-0.7); EOSINOPHILS % (AUTO) 2.1 % (0.0-6.0); HEMATOCRIT 29 % (33-45); HEMOGLOBIN 10.1 g/dL (11.5-14.8); LYMPHOCYTES # (AUTO) 1.1 /CMM (0.8-4.8); LYMPHOCYTES % (AUTO) 11.7 % (20.0-44.0); MEAN CORPUSCULAR HEMOGLOBIN 34 PG (26.0-33.0); MEAN CORPUSCULAR HGB CONC 35 g/dl (31.0-36.0); MEAN CORPUSCULAR VOLUME 97 fL (82-100); MONOCYTES # (AUTO) 0.9 /CMM (0.1-1.30); MONOCYTES % (AUTO) 10.2 % (2.0-12.0); NEUTROPHILS # (AUTO) 6.9 /CMM (1.8-8.9); NEUTROPHILS % (AUTO) 75.7 % (43.0-81.0); PLATELET COUNT (AUTO) 311 /CMM (150-450); RED BLOOD CELL COUNT(AUTO) 2.97 MIL/uL (4.0-5.2); WHITE BLOOD COUNT (AUTO) 9.1 K/uL (4.3-11.0)
[2017-03-14 08:31] LABS: ALANINE AMINOTRANSFERASE 20 U/L (12-78); ALBUMIN 2.2 g/dL (3.4-5.0); ALKALINE PHOSPHATASE 58 U/L (46-116); ASPARTATE AMINOTRANSFERASE 23 U/L (15-37); BILIRUBIN,TOTAL 0.6 mg/dL (0.2-1.0); CARBON DIOXIDE 28 mmol/L (21-32); CHLORIDE 96 mmol/L (98-107); CREATININE 0.6 mg/dL (0.6-1.3); GLUCOSE 80 mg/dL (74-106); MAGNESIUM 1.7 mg/dL (1.8-2.4); PHOSPHORUS 2.1 mg/dL (2.5-4.9); SODIUM SERUM 130 mmol/L (136-145); TOTAL PROTEIN, SERUM 5.9 g/dL (6.4-8.2); UREA NITROGEN, BLOOD 6 mg/dL (7-18)
[2017-03-14] MEDS: FERROUS SULFATE (325 MG) 325 MG/TAB TABLET PO SCH ×2 (08:52→16:57)
[2017-03-14] MEDS: CHOLECALCIFEROL 1,000 UNIT TABLET (VIT D3) PO SCH (08:52)
[2017-03-14] MEDS: CLONIDINE HCL 0.1 MG TABLET PO SCH (08:52)
[2017-03-14] MEDS: DOCUSATE SODIUM 100 MG CAPSULE PO SCH (08:53)
[2017-03-14] MEDS: AMIODARONE HCL 200 MG TABLET PO SCH ×3 (08:53→16:58)
[2017-03-14] MEDS: AMLODIPINE BESYLATE 2.5 MG TABLET PO SCH (08:54)
[2017-03-14] MEDS: PANTOPRAZOLE 40 MG TABLET.DR PO SCH (08:54)
[2017-03-14] MEDS: predniSONE 5 MG TABLET PO SCH (08:54)
[2017-03-14] MEDS: POLYETHYLENE GLYCOL 3350 17 GM POWD.PACK PO SCH (08:56)
[2017-03-14] MEDS: FAMOTIDINE (20 MG) 20 MG TABLET PO SCH ×2 (08:56→16:56)
[2017-03-14] MEDS: MULTIVITAMIN/LUTEIN/MINERALS 1 TAB PO SCH ×2 (08:56→16:56)
[2017-03-14] MEDS: VANCOMYCIN 0.75 GM in IV D5W 250 ML IV SCH ×2 (09:00→21:19)
[2017-03-14] MEDS: BRIMONIDINE TARTRATE OPHT SOLN 5 ML BOTTLE EACHEYE SCH ×3 (09:01→17:00)
[2017-03-14] MEDS: FLUTICASONE/VILANTEROL 1 EACH BLST.W.DEV IH SCH (09:09)
[2017-03-14] MEDS: BOOST PLUS FOOD-CHOCLATE 237 ML BOX PO SCH ×3 (09:41→17:02)
--- NOTE | 2017-03-14 10:20 | NUR ---
MS RN NOTE ULTRAM FOR BACK PAIN F GIVEN ORDERED ,WILL MONITOR CLOSELY
[2017-03-14] MEDS ORDERED: GUAIFENESIN/D-METHORPHAN HB 5 ML UDC PO PRN (10:30)
[2017-03-14] MEDS ORDERED: SIMETHICONE 80 MG TAB.CHEW PO PRN ×2 (10:30→12:30)
[2017-03-14] MEDS: oxyCODONE/APAP (5/325 MG) 1 UDTAB TABLET PO PRN ×2 (10:52→17:04)
[2017-03-14] MEDS: Magnesium 1GM/D5W 100ML PREMIX 100 ML IV SCH ×2 (10:54→12:10)
[2017-03-14 12:00] VITALS: BP 108/57
--- NOTE | 2017-03-14 12:16 | NUR ---
UTILITY TELLER NOTE SEEN BY DR SYLVIA ALVARADO TO GIVE MYLICON AND COLLECT STOOL FOR CDIF FAMILY AT BEDSIDE, Addendum: 03/14/17 at 1426 by KEN OHFFMAN RN STOOL FOR C DIF COLLECTED PER DR SYLVIA FALL
[2017-03-14] MEDS ORDERED: K PHOS NEUTRAL 250 MG TABLET PO ONE (13:30)
[2017-03-14] MEDS: TRAMADOL HCL 50 MG TABLET PO PRN (14:16)
[2017-03-14] MEDS ORDERED: Magnesium 1GM/D5W 100ML PREMIX 100 ML IV SCH (14:30)
--- NOTE | 2017-03-14 15:00 | NUR ---
MS RN NOTE MAG 1.7 2 GM MAG ,WILL BE ADMINISTER ORDERED
[2017-03-14 16:00] VITALS: BP 115/50
[2017-03-14] MEDS: RIVAROXABAN 10 MG TABLET PO SCH (16:57)
--- NOTE | 2017-03-14 18:24 | NUR ---
MS RN NOTE PERCOCET WAS GIVEN EARLIER FOR PAIN . ALL NEEDS ATTENDED , NOT IN ACUTE DISTRESS
[2017-03-14 20:00] VITALS: BP 103/66
--- NOTE | 2017-03-14 20:00 | NUR ---
MS RN NOTE PT IN BED AWAKE, A/O X 3, . NO SOB, NO DISTRESS OR DISCOMFORT NOTED. DENIES PAIN. PARI MIDLINE INTACT AND PATENT. NO S/S OF INFILTRATION NOTED. F/C INTACT AND PATENT DRAINING YELLOWISH COLOR URINE. REPOSITION HER FOR SKIN MANAGEMENT. ALL NEEDS ATTENDED. SIDE RAILS UP X 2 AND CALL LIGHT WITHIN REACH. VSS. CONTINUE TO MONITOR HER.
[2017-03-14] MEDS: ZOLPIDEM TARTRATE 5 MG TABLET PO PRN (21:19)
[2017-03-15 04:00] VITALS: BP 123/57
--- NOTE | 2017-03-15 06:21 | NUR ---
MS RN NOTE PT IN BED ASLEEP. NO DISTRESS OR DISCOMFORT NOTED. DENIES PAIN. MIDLINE PARI INTACT AND PATENT BUT UNABLE TO DRAW BLOOD FOR SECURITY PROFESSIONAL. F/C INTACT AND PATENT DRAINING YELLOWISH COLOR URINE. KEPT HER DRY AND CLEAN. ALL NEEDS ATTENDED. REPOSITION HER Q2H. WILL ENDORSE TO DAY SHIFT NURSE FOR CONTINUE TO CARE.
[2017-03-15 07:06] LABS: CALCIUM, SERUM 8.1 mg/dL (8.5-10.1); CARBON DIOXIDE 31 mmol/L (21-32); CHLORIDE 97 mmol/L (98-107); CREATININE 0.5 mg/dL (0.6-1.3); GLUCOSE 79 mg/dL (74-106); PHOSPHORUS 3.2 mg/dL (2.5-4.9); POTASSIUM 3.7 mmol/L (3.5-5.1); SODIUM SERUM 132 mmol/L (136-145); UREA NITROGEN, BLOOD 6 mg/dL (7-18)
--- NOTE | 2017-03-15 07:30 | NUR ---
ECONOMICS TEACHER INITIAL NOTES RECEIVED PATIENT IN BED, NO SIGNS OF DISTRESS, AOX2 ABLE TO MAKE NEEDS KNOWN, ON 2L NC SATURATING 97%, FC TO GRAVITY DRAINING CLEAR YELLOW URINE, PARI MIDLINE AND R IV 20G, CLEAN AND PATENT, BED IN LOW AND LOCKED POSITION, CALL LIGHT WITHIN REACH WILL CONTINUE TO MONITOR.
[2017-03-15] MEDS: IPRATROPIUM NEB FS 0.5 MG/2.5 ML AMPUL.NEB NEB SCH ×3 (07:55→23:30)
[2017-03-15 08:00] VITALS: BP 124/62
[2017-03-15] MEDS: POLYETHYLENE GLYCOL 3350 17 GM POWD.PACK PO SCH (09:00)
[2017-03-15] MEDS: oxyCODONE/APAP (5/325 MG) 1 UDTAB TABLET PO PRN ×2 (09:20→17:31)
[2017-03-15] MEDS: PANTOPRAZOLE 40 MG TABLET.DR PO SCH (09:22)
[2017-03-15] MEDS: predniSONE 5 MG TABLET PO SCH (09:22)
[2017-03-15] MEDS: MULTIVITAMIN/LUTEIN/MINERALS 1 TAB PO SCH ×2 (09:22→17:34)
[2017-03-15] MEDS: FERROUS SULFATE (325 MG) 325 MG/TAB TABLET PO SCH ×2 (09:22→17:32)
[2017-03-15] MEDS: FAMOTIDINE (20 MG) 20 MG TABLET PO SCH ×2 (09:22→17:32)
[2017-03-15] MEDS: CHOLECALCIFEROL 1,000 UNIT TABLET (VIT D3) PO SCH (09:22)
[2017-03-15] MEDS: DOCUSATE SODIUM 100 MG CAPSULE PO SCH (09:22)
[2017-03-15] MEDS: AMIODARONE HCL 200 MG TABLET PO SCH ×3 (09:23→17:33)
[2017-03-15] MEDS: CLONIDINE HCL 0.1 MG TABLET PO SCH (09:23)
[2017-03-15] MEDS: AMLODIPINE BESYLATE 2.5 MG TABLET PO SCH (09:23)
[2017-03-15] MEDS: BOOST PLUS FOOD-CHOCLATE 237 ML BOX PO SCH ×3 (09:25→17:35)
[2017-03-15] MEDS: VANCOMYCIN 0.75 GM in IV D5W 250 ML IV SCH ×2 (09:27→21:36)
[2017-03-15] MEDS: BRIMONIDINE TARTRATE OPHT SOLN 5 ML BOTTLE EACHEYE SCH ×3 (09:27→17:34)
[2017-03-15] MEDS: FLUTICASONE/VILANTEROL 1 EACH BLST.W.DEV IH SCH (09:27)
[2017-03-15 16:00] VITALS: BP 112/55
[2017-03-15] MEDS: RIVAROXABAN 10 MG TABLET PO SCH (17:35)
--- NOTE | 2017-03-15 19:00 | NUR ---
PROTECTIVE SIGNAL REPAIRER END NOTES PATIENT RESTING IN BED, ALL NEEDS MET, NO SIGNS OF DISTRESS, PAIN MEDICATIONS GIVEN, WILL ENDORSE TO RN PACU FOR CONTINUITY OF CARE.
[2017-03-15 20:00] VITALS: BP 116/63
--- NOTE | 2017-03-15 20:00 | NUR ---
MS RN NOTE PT IN BED AWAKE, A/O X 3, . NO SOB, NO DISTRESS OR DISCOMFORT NOTED. ON O2 2L VIA N/C O2 SAT 96%. DENIES PAIN. PARI MIDLINE INTACT AND PATENT. NO S/S OF INFILTRATION NOTED. F/C INTACT AND PATENT DRAINING YELLOWISH COLOR URINE. REPOSITION HER FOR SKIN MANAGEMENT. ALL NEEDS ATTENDED. SIDE RAILS UP X 2 AND CALL LIGHT WITHIN REACH. VSS. CONTINUE TO MONITOR HER.
[2017-03-15] MEDS: ZOLPIDEM TARTRATE 5 MG TABLET PO PRN (21:36)
[2017-03-16 04:00] VITALS: BP 118/57
--- NOTE | 2017-03-16 06:30 | NUR ---
MS RN NOTE PT IN BED ASLEEP, AROUSABLE. NO DISTRESS OR DISCOMFORT NOTED. F/C INTACT AND PATENT, DRAINING YELLOWISH URINE. REPOSITION HIM Q2H, KEPT HER DRY AND CLEAN. ALL NEEDS ATTENDED. SIDE RAILS UP X3 AND CALL LIGHT WITHIN REACH. WILL ENDORSE TO DAY SHIFT NURSE FOR CONTINUE TO CARE.
[2017-03-16 07:29] LABS: BASOPHILS # (AUTO) 0.1 /CMM (0.0-0.2); BASOPHILS % (AUTO) 0.7 % (0.0-2.0); EOSINOPHILS # (AUTO) 0.2 /CMM (0.0-0.7); EOSINOPHILS % (AUTO) 2.1 % (0.0-6.0); HEMATOCRIT 31 % (33-45); HEMOGLOBIN 10.4 g/dL (11.5-14.8); LYMPHOCYTES # (AUTO) 1.2 /CMM (0.8-4.8); LYMPHOCYTES % (AUTO) 12.5 % (20.0-44.0); MEAN CORPUSCULAR HEMOGLOBIN 33 PG (26.0-33.0); MEAN CORPUSCULAR HGB CONC 34 g/dl (31.0-36.0); MEAN CORPUSCULAR VOLUME 99 fL (82-100); MONOCYTES # (AUTO) 0.9 /CMM (0.1-1.30); NEUTROPHILS # (AUTO) 7.3 /CMM (1.8-8.9); NEUTROPHILS % (AUTO) 75.7 % (43.0-81.0); PLATELET COUNT (AUTO) 373 /CMM (150-450); RDW COEFFICIENT OF VARIATION 13.5 (11.5-15.0); RED BLOOD CELL COUNT(AUTO) 3.12 MIL/uL (4.0-5.2); WHITE BLOOD COUNT (AUTO) 9.7 K/uL (4.3-11.0)
--- NOTE | 2017-03-16 07:30 | NUR ---
MS RN AM NOTES PT IN BED ASLEEP, RESPONDS TO NAME AND TOUCH, RED DEVIL, AO X 2, ON 2L O2 NC, NAD NO SOB, PARI MIDLINE AND RT WRIST IV ACCESS, BOTH FLUSHES WELL, BOTH SITES CLEAR. DENIES PAIN, F/C INTACT AND PATENT, DRAINING YELLOWISH URINE. REGULAR DIET, NEEDS ASSIST, SEE NURSING FLOWSHEET FOR SKIN ISSUES, SIDE RAILS UP X3 AND CALL LIGHT WITHIN REACH. SAFETY MEASURES IN PLACE. WILL CONT TO MONITOR.
[2017-03-16 08:00] VITALS: BP 143/60
[2017-03-16] MEDS: IPRATROPIUM NEB FS 0.5 MG/2.5 ML AMPUL.NEB NEB SCH ×3 (08:02→23:23)
[2017-03-16] MEDS: BOOST PLUS FOOD-CHOCLATE 237 ML BOX PO SCH ×3 (09:00→17:44)
[2017-03-16] MEDS: POLYETHYLENE GLYCOL 3350 17 GM POWD.PACK PO SCH (09:21)
[2017-03-16] MEDS: VANCOMYCIN 0.75 GM in IV D5W 250 ML IV SCH ×2 (09:21→22:18)
[2017-03-16] MEDS: FAMOTIDINE (20 MG) 20 MG TABLET PO SCH ×2 (09:21→17:47)
[2017-03-16] MEDS: PANTOPRAZOLE 40 MG TABLET.DR PO SCH (09:21)
[2017-03-16] MEDS: MULTIVITAMIN/LUTEIN/MINERALS 1 TAB PO SCH ×2 (09:21→17:47)
[2017-03-16] MEDS: DOCUSATE SODIUM 100 MG CAPSULE PO SCH (09:21)
[2017-03-16] MEDS: FERROUS SULFATE (325 MG) 325 MG/TAB TABLET PO SCH ×2 (09:22→17:47)
[2017-03-16] MEDS: predniSONE 5 MG TABLET PO SCH (09:22)
[2017-03-16] MEDS: CLONIDINE HCL 0.1 MG TABLET PO SCH (09:24)
[2017-03-16] MEDS: AMLODIPINE BESYLATE 2.5 MG TABLET PO SCH (09:24)
[2017-03-16] MEDS: AMIODARONE HCL 200 MG TABLET PO SCH ×3 (09:24→17:00)
[2017-03-16] MEDS: oxyCODONE/APAP (5/325 MG) 1 UDTAB TABLET PO PRN ×2 (09:25→15:42)
[2017-03-16] MEDS: CHOLECALCIFEROL 1,000 UNIT TABLET (VIT D3) PO SCH (09:26)
--- NOTE | 2017-03-16 09:30 | NUR ---
MS RN NOTES DUE MEDS GIVEN STARTED VANCO IV.
[2017-03-16 12:00] LABS: CALCIUM, SERUM 8.2 mg/dL (8.5-10.1); CARBON DIOXIDE 28 mmol/L (21-32); CHLORIDE 95 mmol/L (98-107); CREATININE 0.7 mg/dL (0.6-1.3); GLUCOSE 175 mg/dL (74-106); POTASSIUM 3.2 mmol/L (3.5-5.1); SODIUM SERUM 129 mmol/L (136-145); UREA NITROGEN, BLOOD 5 mg/dL (7-18)
[2017-03-16] MEDS: FLUTICASONE/VILANTEROL 1 EACH BLST.W.DEV IH SCH (12:21)
[2017-03-16] MEDS: BRIMONIDINE TARTRATE OPHT SOLN 5 ML BOTTLE EACHEYE SCH ×3 (12:21→17:44)
[2017-03-16] MEDS ORDERED: OSELTAMIVIR PHOSPHATE 75 MG CAPSULE PO SCH (12:30)
[2017-03-16 16:00] VITALS: BP_SYST 110; BP_SYST 122; BP_DIAS 50; BP_DIAS 52
[2017-03-16] MEDS: RIVAROXABAN 10 MG TABLET PO SCH (17:48)
--- NOTE | 2017-03-16 18:50 | NUR ---
MS RN CLOSING NOTES PT IN BED RESTING COMFORTABLY, [place], AO X 2, ON 2L O2 NC, NAD NO SOB, PARI MIDLINE AND RT WRIST IV ACCESS, BOTH FLUSHES WELL, BOTH SITES CLEAR. DENIES PAIN, F/C INTACT AND PATENT, DRAINING YELLOWISH URINE. 950 ML. REGULAR DIET, NEEDS ASSIST, SIDE RAILS UP X3 AND CALL LIGHT WITHIN REACH. SAFETY MEASURES IN PLACE. ALL NEEDS MET. NO OTHER SIGNIFICANT CHANGE IN CONDITION. WILL ENDORSE TO NEXT SHIFT FOR SCARLET. PATIENT SUPPOSED TO BE FOR DISCHARGED TODAY TO [facility], ANGEL CASE MANAGEMENT AND RUBEN CHARGE NURSE, AWARE ABOUT THE SITUATION.
--- NOTE | 2017-03-16 19:30 | NUR ---
Received patient in the bed.No unusual signs or symptoms observed or reported,no signs of discomfort or distress.Daughter at bedside,no problems.Patient informed me that she will be needing HS meds later,no problems.
[2017-03-16 20:00] VITALS: BP 106/51
[2017-03-16] MEDS ORDERED: AMIO200T7 PO (21:03)
[2017-03-16] MEDS: ZOLPIDEM TARTRATE 5 MG TABLET PO PRN (22:18)
--- NOTE | 2017-03-16 22:18 | NUR ---
Gave patient med,no problems.
--- NOTE | 2017-03-17 00:40 | NUR ---
Transferred to RM 310-2.Gave report to accepting nurse,no problems
--- NOTE | 2017-03-17 01:00 | NUR ---
MS RN NOTE PATIENT STABLE. ALERT AND ORIENTED X3. DENIES ANY PAIN OR DISCOMFORT AT THIS TIME. IV SITE TO PARI MIDLINE, AND RIGHT WRIST INTACT, WITH NO REDNESS NOTED.
--- NOTE | 2017-03-17 01:00 | NUR ---
MS RN NOTE SIDE RAILS UP, BED LOCKED AND IN LOWEST POSITION. CALL LIGHT WITHIN REACH.
[2017-03-17 03:00] VITALS: BP 111/63
[2017-03-17] MEDS: TRAMADOL HCL 50 MG TABLET PO PRN (06:19)
--- NOTE | 2017-03-17 06:37 | NUR ---
MS RN NOTE PATIENT STABLE. WILL ENDORSE TO DAY SHIFT FOR SCARLET.
--- NOTE | 2017-03-17 07:30 | NUR ---
MS/RN OPENING NOTE RECEIVED PATIENT IN BED AWAKE. ALERT AND ORIENTED X3. DENIES SOB, PAIN. ON NC AT LL/MIN. RESPIRATION REGULAR AND UNLABORED. IN NO APPARENT DISTRESS. PARI MIDLINE AND RIGHT WRIST #20 PATENT. BED LOW AND LOCKED. SIDE RAIL UP X2. CALL LIGHT WITHIN REACH. WILL CONTINUE TO MONITOR.
[2017-03-17 08:00] VITALS: BP 130/65
[2017-03-17] MEDS: AMLODIPINE BESYLATE 2.5 MG TABLET PO SCH (08:13)
[2017-03-17] MEDS: MULTIVITAMIN/LUTEIN/MINERALS 1 TAB PO SCH (08:13)
[2017-03-17] MEDS: FAMOTIDINE (20 MG) 20 MG TABLET PO SCH (08:13)
[2017-03-17] MEDS: CLONIDINE HCL 0.1 MG TABLET PO SCH (08:14)
[2017-03-17] MEDS: predniSONE 5 MG TABLET PO SCH (08:14)
[2017-03-17] MEDS: AMIODARONE HCL 200 MG TABLET PO SCH ×2 (08:14→13:52)
[2017-03-17] MEDS: CHOLECALCIFEROL 1,000 UNIT TABLET (VIT D3) PO SCH (08:14)
[2017-03-17] MEDS: FERROUS SULFATE (325 MG) 325 MG/TAB TABLET PO SCH (08:14)
[2017-03-17] MEDS: PANTOPRAZOLE 40 MG TABLET.DR PO SCH (08:14)
[2017-03-17] MEDS: DOCUSATE SODIUM 100 MG CAPSULE PO SCH (08:15)
[2017-03-17] MEDS: POLYETHYLENE GLYCOL 3350 17 GM POWD.PACK PO SCH (08:15)
[2017-03-17] MEDS: IPRATROPIUM NEB FS 0.5 MG/2.5 ML AMPUL.NEB NEB SCH (08:20)
[2017-03-17 08:35] LABS: CALCIUM, SERUM 8.5 mg/dL (8.5-10.1); CARBON DIOXIDE 28 mmol/L (21-32); CHLORIDE 100 mmol/L (98-107); CREATININE 0.6 mg/dL (0.6-1.3); GLUCOSE 88 mg/dL (74-106); POTASSIUM 3.5 mmol/L (3.5-5.1); SODIUM SERUM 137 mmol/L (136-145); UREA NITROGEN, BLOOD 6 mg/dL (7-18)
[2017-03-17] MEDS: BRIMONIDINE TARTRATE OPHT SOLN 5 ML BOTTLE EACHEYE SCH ×2 (09:00→13:00)
[2017-03-17] MEDS: FLUTICASONE/VILANTEROL 1 EACH BLST.W.DEV IH SCH (09:00)
[2017-03-17] MEDS: BOOST PLUS FOOD-CHOCLATE 237 ML BOX PO SCH ×2 (09:48→13:54)
[2017-03-17] MEDS: VANCOMYCIN 0.75 GM in IV D5W 250 ML IV SCH (09:48)
[2017-03-17 13:52] VITALS: BP 126/72
[2017-03-17] MEDS: oxyCODONE/APAP (5/325 MG) 1 UDTAB TABLET PO PRN (13:58)
== END 2017-03-17 15:35 | DRG 193 ==
LOC: ER 15:28 → TELE 19:59 → MED 21:25 → TELE 21:37 → MED 03-10 18:00 → ICU 03-12 09:14 → TELE1 03-13 18:11 → MEDSG1 03-14 10:26 → MED 03-17 00:49
PROVIDERS: ADMIT Internal Medicine; ATTEND Internal Medicine
PROC: 05H533Z Insertion of Infusion Device into Right Subclavian Vein, Percutaneous Approach (ICD-10-PCS; principal; 2017-03-12)
DX: J10.08 Influenza due to other identified influenza virus with other specified pneumonia (principal); N17.0 Acute kidney failure with tubular necrosis; E43 Unspecified severe protein-calorie malnutrition; G93.40 Encephalopathy, unspecified; E22.2 Syndrome of inappropriate secretion of antidiuretic hormone; D68.59 Other primary thrombophilia; E88.09 Other disorders of plasma-protein metabolism, not elsewhere classified; I47.1 Supraventricular tachycardia; I48.0 Paroxysmal atrial fibrillation; J44.0 Chronic obstructive pulmonary disease with (acute) lower respiratory infection; W19.XXXA Unspecified fall, initial encounter; J15.9 Unspecified bacterial pneumonia; J44.1 Chronic obstructive pulmonary disease with (acute) exacerbation; K21.9 Gastro-esophageal reflux disease without esophagitis; Z79.01 Long term (current) use of anticoagulants; Z86.718 Personal history of other venous thrombosis and embolism; M62.50 Muscle wasting and atrophy, not elsewhere classified, unspecified site; H40.9 Unspecified glaucoma; Z68.25 Body mass index [BMI] 25.0-25.9, adult; I12.9 Hypertensive chronic kidney disease with stage 1 through stage 4 chronic kidney disease, or unspecified chronic kidney disease; N18.9 Chronic kidney disease, unspecified; E87.6 Hypokalemia; E86.1 Hypovolemia; T50.2X5A Adverse effect of carbonic-anhydrase inhibitors, benzothiadiazides and other diuretics, initial encounter; Y92.89 Other specified places as the place of occurrence of the external cause; S40.012A Contusion of left shoulder, initial encounter; X58.XXXA Exposure to other specified factors, initial encounter; Y93.9 Activity, unspecified
CPT/HCPCS: 36415; 36600; 70450-TC; 71045-TC; 71250-TC; 80048-TC; 80053-TC; 80061-TC; 80076-TC; 80202-TC; 82272-TC; 82533; 82728-TC; 82803-TC; 83540-TC; 83605-TC; 83735-TC; 84100-TC; 84439-TC; 84443-TC; 84484-TC; 84550-TC; 85025-TC; 85730-TC; 87040-TC; 87081-TC; 87400; 93307-TC; 94799-TC; 97110-TC; 97116-TC; 97530-TC; A4216; A4606; A6402; J0153; J0282; J0456; J0696; J2405; J3370; J3475; J3480; J3490; J7030; J7042; J7050; J7060; J7512; Z7610

== ENCOUNTER 2019-02-11 18:34 | Emergency (ER) | payer MEDICARE, BC ==
[~2019-02-11] VITALS: Ht 165.1 cm; Wt 66.7 kg
[~2019-02-11 18:34] MED LIST: ACET-2605 PO; ALBU8.5H8 INH; AMLO2.5T4 PO; B2/V1TAB PO; BENA5TAB5 PO; BRIM5DRO5 EACHEYE; CHOL10002 PO; CLON0.1T PO; DOCU100C36 PO; FAMO20TA8 PO; FERR325T23 PO; FLUT1DIS5 IH; GUAI600T53 PO; HYDR12.55 PO; OXYC-128 PO; PANT40TA4 PO; POLY119P2 PO; RIVA10TA PO; TIOT18CA3 IH; TRAM50TA2 PO
--- NOTE | 2019-02-11 18:46 | NUR ---
PT BIBA FOR SCALP LACERATION, BILATERAL ELBOW SKIN TEAR S/P GLF ON WALKER, -KO, -HEADACHE, -SOB. PT AAOX4, VSS, BREATHING EVEN AND UNLABORED ON ROOM AIR W/ NAD NOTED. PT ALSO ENDORSES PAIN ON THE L RIB AREA. PT CONNECTED TO THE MONITOR AND POX.
--- NOTE | 2019-02-11 18:50 | NUR ---
TECH AT BEDSIDE FOR WOUND CLEANING
[2019-02-11] MEDS ORDERED: LIDOCAINE 1%-EPI 1:100,000 20 ML VIAL ONE ×2 (19:09→19:33)
--- NOTE | 2019-02-11 19:23 | NUR ---
PT TAKEN TO CT
[2019-02-11] MEDS ORDERED: LIDOCAINE 1%-EPI 1:100,000 50 ML VIAL IJ ONE (19:30)
--- NOTE | 2019-02-11 19:40 | NUR ---
PT BACK FROM CT
--- NOTE | 2019-02-11 20:48 | NUR ---
[facility] ETA [id number] [facility] [id number]
--- NOTE | 2019-02-11 20:59 | NUR ---
Report given to EMS. Pt stable for transfer
--- NOTE | 2019-02-11 21:00 | NUR ---
Patient discharged to facility in stable condition. Written and verbal after care instructions given. Patient verbalizes understanding of instruction.
[2019-02-11 21:03] VITALS: BP 165/80
== END 2019-02-11 21:05 ==
LOC: ER 18:36
DX: S01.01XA Laceration without foreign body of scalp, initial encounter (principal); S51.811A Laceration without foreign body of right forearm, initial encounter; S20.212A Contusion of left front wall of thorax, initial encounter; S09.8XXA Other specified injuries of head, initial encounter; K45.8 Other specified abdominal hernia without obstruction or gangrene; I10 Essential (primary) hypertension; I48.91 Unspecified atrial fibrillation; J44.9 Chronic obstructive pulmonary disease, unspecified; K21.9 Gastro-esophageal reflux disease without esophagitis; M54.9 Dorsalgia, unspecified; Z98.890 Other specified postprocedural states; Z88.6 Allergy status to analgesic agent; Z79.899 Other long term (current) drug therapy; W01.198A Fall on same level from slipping, tripping and stumbling with subsequent striking against other object, initial encounter; Y93.89 Activity, other specified; Y92.89 Other specified places as the place of occurrence of the external cause; Y99.8 Other external cause status
CPT/HCPCS: 12002; 70450; 71100; 72125; 99285; J3490 ×3